=== PATIENT | female | born 1955 | race Caucasian/White ===

== ENCOUNTER 2020-09-29 11:13 | Inpatient (IN) | payer MEDICARE, OTHER ==
[~2020-09-29] VITALS: Ht 160 cm; Wt 59.0 kg
[~2020-09-29 11:13] MED LIST: AMLODIPINE BESYL5 MG PO; ASPIR-LOW81 MG PO; ATORVASTATIN CA40 MG PO; CELEBREX 200MG200 MG PO; COZAAR50 MG PO; DESYREL 50 MG T50 MG PO; DIABETA 5 MG TAB5 MG PO; GLUCOPHAGE XR500 MG PO; HUMULIN N100 UNIT/1 SC; HYDROCODON-ACE1 EAC4 PO; IMDUR ER TAB 3030 MG PO; JINTELI 1 MG-51 EACH PO; KLONOPIN TAB 00.5 MG PO; LANTUS100 UNIT/1 SQ; LIPITOR TAB 1010 MG PO; PLAQUENIL 200200 MG PO; PLAVIX 75 MG TA75 MG PO; REQUIP0.5 MG PO; TOPROL XL25 MG PO; TRULICITY0.75 MG/0. SQ; VITAMIN D250000 UNIT PO
[2020-09-29 11:54] LABS: HEMOGLOBIN 11.6 gm/dl (12.3-15.3); RED BLOOD COUNT 4.57 M/UL (4.00-5.10); WHITE BLOOD COUNT 13.2 K/UL (4.5-11.0)
[2020-09-29] MEDS ORDERED: GABAPENTIN300 MG PO (21:53)
[2020-09-29] MEDS ORDERED: TRAMADOL HCL50 MG PO (21:55)
[2020-09-29] MEDS ORDERED: CYCLOBENZAPRINE5 MG PO (21:56)
[2020-09-29] MEDS ORDERED: REQUIP0.25 MG PO (21:57)
[2020-09-29] MEDS ORDERED: WELLBUTRIN SR150 M1 PO (21:58)
[2020-09-29] MEDS ORDERED: XARELTO20 MG PO (22:00)
[2020-09-30 04:45] LABS: HEMOGLOBIN 12.2 gm/dl (12.3-15.3); RED BLOOD COUNT 4.84 M/UL (4.00-5.10); WHITE BLOOD COUNT 11.4 K/UL (4.5-11.0)
--- NOTE | 2020-10-01 15:54 | NUR ---
REPORTED BS TO DR. CONCEPCION RECEIVED ORDER
[2020-10-01] MEDS ORDERED: IPRAT-ALBUT 0.5-3 ML NEB (17:48)
[2020-10-01] MEDS ORDERED: SYMBICORT 160-1 INHA INH (17:48)
[2020-10-01] MEDS ORDERED: PROAIR HFA8.5 GM INH (17:48)
[2020-10-02] MEDS ORDERED: HYDROCODON-ACE1 EAC4 PO (14:05)
--- NOTE | 2020-10-02 15:12 | NUR ---
report given to JERMAN admitting nurse of [facility]. [facility] delivered bsc and wheel chair
--- NOTE | 2020-10-02 16:56 | NUR ---
PATIENT ON ROOM AIR PULSE OX [id number]. DENIES SOB. DR. CONCEPCION AWARE.
== END 2020-10-02 17:37 | disposition home or self-care (01) | DRG 535 ==
LOC: ER1 11:13 → CDU 17:09 → MED SURG 4 17:09
PROVIDERS: Internal Medicine; Physician Assistant; Physician Assistant Medical; ADMIT Internal Medicine
DX: S72.115A Nondisplaced fracture of greater trochanter of left femur, initial encounter for closed fracture (principal); J96.01 Acute respiratory failure with hypoxia; S82.002A Unspecified fracture of left patella, initial encounter for closed fracture; J44.1 Chronic obstructive pulmonary disease with (acute) exacerbation; Z20.822 Contact with and (suspected) exposure to COVID-19; F17.210 Nicotine dependence, cigarettes, uncomplicated; I25.10 Atherosclerotic heart disease of native coronary artery without angina pectoris; E11.9 Type 2 diabetes mellitus without complications; E78.5 Hyperlipidemia, unspecified; W01.0XXA Fall on same level from slipping, tripping and stumbling without subsequent striking against object, initial encounter; Y93.9 Activity, unspecified; Y92.009 Unspecified place in unspecified non-institutional (private) residence as the place of occurrence of the external cause; Z86.73 Personal history of transient ischemic attack (TIA), and cerebral infarction without residual deficits; Z98.61 Coronary angioplasty status; Z79.01 Long term (current) use of anticoagulants; Z79.02 Long term (current) use of antithrombotics/antiplatelets; Z79.4 Long term (current) use of insulin; Z79.899 Other long term (current) drug therapy; Z82.49 Family history of ischemic heart disease and other diseases of the circulatory system; Z83.3 Family history of diabetes mellitus; Z80.9 Family history of malignant neoplasm, unspecified; I25.2 Old myocardial infarction; Z86.718 Personal history of other venous thrombosis and embolism
CPT/HCPCS: 36415; 36600; 71045; 72192; 73502; 73564; 80048; 80053; 82550; 82553; 82803; 82962; 83735; 83874; 84484; 85025; 85027; 93005; 94640; 94664; 94760; 96374; 96375; 97110-GP-CQ; 97116-GP-CQ; 97162; 99285; J0696; J2270; J2405; J2920; J2930; J7030; U0002

== ENCOUNTER 2020-10-08 16:21 | Inpatient (IN) | payer MEDICARE, OTHER ==
[~2020-10-08] VITALS: Ht 160 cm; Wt 59.0 kg
[~2020-10-08 16:21] MED LIST changes: +CYCLOBENZAPRINE5 MG PO; +GABAPENTIN300 MG PO; +IPRAT-ALBUT 0.5-3 ML NEB; +PROAIR HFA8.5 GM INH; +REQUIP0.25 MG PO; +SYMBICORT 160-1 INHA INH; +TRAMADOL HCL50 MG PO; +WELLBUTRIN SR150 M1 PO; +XARELTO20 MG PO
[2020-10-08 17:15] LABS: HEMOGLOBIN 10.9 gm/dl (12.3-15.3); RED BLOOD COUNT 4.24 M/UL (4.00-5.10); WHITE BLOOD COUNT 15.3 K/UL (4.5-11.0)
[2020-10-08] MEDS ORDERED: ISOSORBIDE MONO30 MG PO (21:17)
[2020-10-09 05:54] LABS: HEMOGLOBIN 9.1 gm/dl (12.3-15.3); RED BLOOD COUNT 3.66 M/UL (4.00-5.10); WHITE BLOOD COUNT 10.9 K/UL (4.5-11.0)
[2020-10-09 06:21] LABS: BUN/CREATININE RATIO 15 (0-10)
[2020-10-10 04:30] LABS: HEMOGLOBIN 9.2 gm/dl (12.3-15.3); RED BLOOD COUNT 3.7 M/UL (4.00-5.10); WHITE BLOOD COUNT 13.4 K/UL (4.5-11.0)
[2020-10-10 04:47] LABS: BUN/CREATININE RATIO 13 (0-10)
[2020-10-11 12:37] LABS: HEMOGLOBIN 9.2 gm/dl (12.3-15.3); RED BLOOD COUNT 3.68 M/UL (4.00-5.10); WHITE BLOOD COUNT 15.8 K/UL (4.5-11.0)
[2020-10-12 04:53] LABS: HEMOGLOBIN 9.8 gm/dl (12.3-15.3); RED BLOOD COUNT 3.86 M/UL (4.00-5.10); WHITE BLOOD COUNT 14.4 K/UL (4.5-11.0)
[2020-10-12 05:22] LABS: BUN/CREATININE RATIO 19 (0-10)
[2020-10-13 03:44] LABS: HEMOGLOBIN 8.3 gm/dl (12.3-15.3); WHITE BLOOD COUNT 13.3 K/UL (4.5-11.0)
[2020-10-13 03:47] LABS: RED BLOOD COUNT 3.39 M/UL (4.00-5.10)
[2020-10-14 11:04] LABS: HEMOGLOBIN 9.4 gm/dl (12.3-15.3)
[2020-10-14 11:07] LABS: RED BLOOD COUNT 3.75 M/UL (4.00-5.10); WHITE BLOOD COUNT 15.9 K/UL (4.5-11.0)
--- NOTE | 2020-10-14 13:30 | NUR ---
UPON PLACING PATIENT BACK IN BED FROM CHAIR HER AQUACEL DRESSING TO HER LEFT HIP SURGICAL SITE WAS NOTED TO BE SATURATED WITH BLOOD. DRESSING WAS REMOVED AND AREA CLEANED WITH A NEW DRESSING APPLIED. [employer]IST[employer] ASSISTANT ON THE FLOOR AT TIME OF INCIDENT WAS MADE AWARE OR SITUATION AND WAS GAVE ORDERS TO CALL MD IF IT HAPPENED AGAIN.
[2020-10-15 04:03] LABS: HEMOGLOBIN 8.3 gm/dl (12.3-15.3); RED BLOOD COUNT 3.37 M/UL (4.00-5.10)
[2020-10-16] MEDS ORDERED: KLONOPIN TAB 00.5 MG PO (11:16)
[2020-10-16] MEDS ORDERED: GABAPENTIN300 MG PO (11:16)
--- NOTE | 2020-10-17 11:58 | NUR ---
PATIENT REQUESTING LIM TO BE D/C AT THIS TIME. PATIENT TOLERATED WELL.
[2020-10-18 05:03] LABS: HEMOGLOBIN 8.3 gm/dl (12.3-15.3); RED BLOOD COUNT 3.49 M/UL (4.00-5.10); WHITE BLOOD COUNT 11.8 K/UL (4.5-11.0)
== END 2020-10-18 20:34 | disposition home health service (06) | DRG 481 ==
LOC: ER1 16:21 → M/S 17:54 → CDU 17:54 → M/S 20:13
PROVIDERS: Emergency Medicine; Internal Medicine; Orthopaedic Surgery; ADMIT Internal Medicine
PROC: 0QS736Z Reposition Left Upper Femur with Intramedullary Internal Fixation Device, Percutaneous Approach (ICD-10-PCS; principal; 2020-10-11 13:00)
DX: S72.142A Displaced intertrochanteric fracture of left femur, initial encounter for closed fracture (principal); S82.002A Unspecified fracture of left patella, initial encounter for closed fracture; D62 Acute posthemorrhagic anemia; M96.830 Postprocedural hemorrhage of a musculoskeletal structure following a musculoskeletal system procedure; W18.30XA Fall on same level, unspecified, initial encounter; J44.9 Chronic obstructive pulmonary disease, unspecified; I25.10 Atherosclerotic heart disease of native coronary artery without angina pectoris; E11.9 Type 2 diabetes mellitus without complications; I10 Essential (primary) hypertension; F17.210 Nicotine dependence, cigarettes, uncomplicated; E78.5 Hyperlipidemia, unspecified; Z79.82 Long term (current) use of aspirin; Z86.73 Personal history of transient ischemic attack (TIA), and cerebral infarction without residual deficits; Z79.02 Long term (current) use of antithrombotics/antiplatelets; Z79.4 Long term (current) use of insulin; Z79.899 Other long term (current) drug therapy; Z98.890 Other specified postprocedural states; Z95.1 Presence of aortocoronary bypass graft; Z86.718 Personal history of other venous thrombosis and embolism; Z20.822 Contact with and (suspected) exposure to COVID-19; Y83.8 Other surgical procedures as the cause of abnormal reaction of the patient, or of later complication, without mention of misadventure at the time of the procedure
CPT/HCPCS: 36415; 71045; 72192; 73502; 76000; 80048; 80053; 82962; 83036; 85025; 85027; 94640; 94760; 97110-GP-CQ; 97116; 97116-GP-CQ; 97162; 97166; 97530; 97535; 99285; C1713; J0690; J1100; J2001; J2270; J2405; J2704; J2710; J3010; J7120; U0002

== ENCOUNTER 2021-01-07 17:36 | Emergency (ER) | payer MEDICARE, OTHER ==
[~2021-01-07 17:36] MED LIST changes: +ISOSORBIDE MONO30 MG PO
== END 2021-01-07 20:40 | disposition home or self-care (01) ==
LOC: ER1 17:36
DX: I73.9 Peripheral vascular disease, unspecified (principal)
CPT/HCPCS: 99283

== ENCOUNTER 2021-01-08 12:39 | Emergency (ER) | payer MEDICARE, OTHER ==
[2021-01-08 15:16] LABS: HEMOGLOBIN 11.3 gm/dl (12.3-15.3); RED BLOOD COUNT 4.59 M/UL (4.00-5.10); WHITE BLOOD COUNT 9.8 K/UL (4.5-11.0)
[2021-01-08 15:46] LABS: BUN/CREATININE RATIO 18 (0-10)
== END 2021-01-09 10:40 | disposition home or self-care (01) ==
LOC: ER1 12:39
PROVIDERS: Emergency Medicine
DX: I99.8 Other disorder of circulatory system (principal); Z20.822 Contact with and (suspected) exposure to COVID-19
CPT/HCPCS: 80053; 82550; 82553; 82962; 83874; 84484; 85025; 85610; 85730; 93005; 93926; 93971; 96374; 96375; 99284; J0360; J1644; U0002

== ENCOUNTER 2021-06-29 13:37 | Emergency (ER) | payer MEDICARE, OTHER ==
[2021-06-29 15:26] LABS: RED BLOOD COUNT 2.61 M/UL (4.00-5.10); WHITE BLOOD COUNT 25.9 K/UL (4.5-11.0)
[2021-06-29 15:29] LABS: HEMOGLOBIN 5.9 gm/dl (12.3-15.3)
== END 2021-06-29 19:40 | disposition short-term general hospital (02) ==
LOC: ER1 13:37
PROVIDERS: Student in an Organized Health Care Education/Training Program
DX: T82.7XXA Infection and inflammatory reaction due to other cardiac and vascular devices, implants and grafts, initial encounter (principal); S70.11XA Contusion of right thigh, initial encounter; S80.11XA Contusion of right lower leg, initial encounter; E11.9 Type 2 diabetes mellitus without complications; I10 Essential (primary) hypertension; Z20.822 Contact with and (suspected) exposure to COVID-19; I25.2 Old myocardial infarction; W19.XXXA Unspecified fall, initial encounter; Y93.9 Activity, unspecified; Y92.002 Bathroom of unspecified non-institutional (private) residence as the place of occurrence of the external cause
CPT/HCPCS: 36430; 73502; 73552; 80053; 83605; 85025; 85610; 86850; 86900; 86901; 86920; 87040; 96374; 96375; 99285; J2270; J2405; J3370; P9016; Q9967; U0002

== ENCOUNTER → 2021-12-01 | Outpatient (CLI) | payer MEDICARE, OTHER ==
[2021-12-01 17:26] LABS: HEMOGLOBIN 10.3 gm/dl (12.3-15.3); RED BLOOD COUNT 3.3 M/UL (4.00-5.10); WHITE BLOOD COUNT 10.7 K/UL (4.5-11.0)
[2021-12-01 18:01] LABS: BUN/CREATININE RATIO 27 (0-10)
== END ==
LOC: LAB 15:31
PROVIDERS: Internal Medicine Infectious Disease
DX: T87.81 Dehiscence of amputation stump (principal); T87.43 Infection of amputation stump, right lower extremity; L03.115 Cellulitis of right lower limb; B95.62 Methicillin resistant Staphylococcus aureus infection as the cause of diseases classified elsewhere; D69.3 Immune thrombocytopenic purpura
CPT/HCPCS: 36415; 80053; 82550; 85025; 85652; 86140

== ENCOUNTER → 2021-12-01 | Outpatient (CLI) | payer MEDICARE, OTHER | LOC: WCC 08:18 | DX: E11.622 Type 2 diabetes mellitus with other skin ulcer (principal); L89.153 Pressure ulcer of sacral region, stage 3; L89.620 Pressure ulcer of left heel, unstageable; T87.81 Dehiscence of amputation stump; Z89.612 Acquired absence of left leg above knee; E11.51 Type 2 diabetes mellitus with diabetic peripheral angiopathy without gangrene; E46 Unspecified protein-calorie malnutrition; I25.10 Atherosclerotic heart disease of native coronary artery without angina pectoris; I10 Essential (primary) hypertension; J44.9 Chronic obstructive pulmonary disease, unspecified; Z72.0 Tobacco use; Z79.4 Long term (current) use of insulin | CPT/HCPCS: 97597 ==

== ENCOUNTER → 2021-12-15 | Outpatient (CLI) | payer MEDICARE, OTHER | LOC: WCC 08:25 | DX: E11.621 Type 2 diabetes mellitus with foot ulcer (principal); E11.622 Type 2 diabetes mellitus with other skin ulcer; L89.620 Pressure ulcer of left heel, unstageable; L89.153 Pressure ulcer of sacral region, stage 3; E11.51 Type 2 diabetes mellitus with diabetic peripheral angiopathy without gangrene; I25.10 Atherosclerotic heart disease of native coronary artery without angina pectoris; I10 Essential (primary) hypertension; J44.9 Chronic obstructive pulmonary disease, unspecified; E46 Unspecified protein-calorie malnutrition; Z72.0 Tobacco use; Z89.612 Acquired absence of left leg above knee; Z79.4 Long term (current) use of insulin; Z79.899 Other long term (current) drug therapy | CPT/HCPCS: 87070; 87077; 87186; 87205 ==

== ENCOUNTER → 2021-12-22 | Outpatient (CLI) | payer MEDICARE, OTHER | LOC: WCC 09:17 | DX: E11.621 Type 2 diabetes mellitus with foot ulcer (principal); L89.620 Pressure ulcer of left heel, unstageable; L89.153 Pressure ulcer of sacral region, stage 3; E11.51 Type 2 diabetes mellitus with diabetic peripheral angiopathy without gangrene; E46 Unspecified protein-calorie malnutrition; I25.10 Atherosclerotic heart disease of native coronary artery without angina pectoris; I10 Essential (primary) hypertension; J44.9 Chronic obstructive pulmonary disease, unspecified; Z72.0 Tobacco use; Z89.612 Acquired absence of left leg above knee; Z79.4 Long term (current) use of insulin; Z79.899 Other long term (current) drug therapy ==

== ENCOUNTER → 2021-12-29 | Outpatient (CLI) | payer MEDICARE, OTHER | LOC: WCC 08:13 | DX: E11.622 Type 2 diabetes mellitus with other skin ulcer (principal); L89.153 Pressure ulcer of sacral region, stage 3; L89.620 Pressure ulcer of left heel, unstageable; E11.51 Type 2 diabetes mellitus with diabetic peripheral angiopathy without gangrene; E46 Unspecified protein-calorie malnutrition; Z79.4 Long term (current) use of insulin; I25.10 Atherosclerotic heart disease of native coronary artery without angina pectoris; I10 Essential (primary) hypertension; J44.9 Chronic obstructive pulmonary disease, unspecified; Z89.612 Acquired absence of left leg above knee; Z72.0 Tobacco use; Z79.899 Other long term (current) drug therapy ==

== ENCOUNTER → 2022-02-16 | Outpatient (CLI) | payer MEDICARE, OTHER | LOC: WCC 07:49 | DX: L89.622 Pressure ulcer of left heel, stage 2 (principal); L89.153 Pressure ulcer of sacral region, stage 3; E11.622 Type 2 diabetes mellitus with other skin ulcer; I73.9 Peripheral vascular disease, unspecified; E46 Unspecified protein-calorie malnutrition; I25.10 Atherosclerotic heart disease of native coronary artery without angina pectoris; I10 Essential (primary) hypertension; J44.9 Chronic obstructive pulmonary disease, unspecified; E11.36 Type 2 diabetes mellitus with diabetic cataract; H26.9 Unspecified cataract; I25.2 Old myocardial infarction; Z72.0 Tobacco use; Z89.612 Acquired absence of left leg above knee; Z79.4 Long term (current) use of insulin ==

== ENCOUNTER → 2022-03-02 | Outpatient (CLI) | payer MEDICARE, OTHER | END | disposition home or self-care (01) | LOC: WCC 07:57 | DX: L89.620 Pressure ulcer of left heel, unstageable (principal); L89.152 Pressure ulcer of sacral region, stage 2; L89.153 Pressure ulcer of sacral region, stage 3; E11.622 Type 2 diabetes mellitus with other skin ulcer; E11.51 Type 2 diabetes mellitus with diabetic peripheral angiopathy without gangrene; I25.10 Atherosclerotic heart disease of native coronary artery without angina pectoris; I10 Essential (primary) hypertension; J44.9 Chronic obstructive pulmonary disease, unspecified; E46 Unspecified protein-calorie malnutrition; F17.210 Nicotine dependence, cigarettes, uncomplicated; Z79.4 Long term (current) use of insulin; Z89.612 Acquired absence of left leg above knee; Z91.14 Patient's other noncompliance with medication regimen | CPT/HCPCS: 97597 ==

== ENCOUNTER 2022-03-07 13:27 | Inpatient (IN) | payer MEDICARE, OTHER ==
[~2022-03-07] VITALS: Ht 160 cm; Wt 54.4 kg
[~2022-03-07 13:27] MED LIST changes: +LANTUS SOL100 UNIT/1 SQ; -LANTUS100 UNIT/1 SQ; -REQUIP0.25 MG PO; +ROPINIROLE HCL0.5 MG PO
[2022-03-07 14:11] LABS: RED BLOOD COUNT 2.88 M/UL (4.00-5.10); WHITE BLOOD COUNT 12.6 K/UL (4.5-11.0)
[2022-03-07 14:13] LABS: HEMOGLOBIN 6.3 gm/dl (12.3-15.3)
[2022-03-07 14:43] LABS: BUN/CREATININE RATIO 16 (0-10)
[2022-03-07] MEDS ORDERED: GABAPENTIN400 MG PO (18:51)
[2022-03-07] MEDS ORDERED: ISOSORBIDE MONO30 MG PO (18:52)
[2022-03-07] MEDS ORDERED: KLONOPIN0.5 MG PO (18:53)
[2022-03-07] MEDS ORDERED: TOPIRAMATE50 MG PO (18:54)
[2022-03-07] MEDS ORDERED: AMLODIPINE BESYL5 MG PO (18:54)
[2022-03-08 06:09] LABS: WHITE BLOOD COUNT 11.3 K/UL (4.5-11.0)
[2022-03-08 06:31] LABS: HEMOGLOBIN 10.3 gm/dl (12.3-15.3); RED BLOOD COUNT 4.15 M/UL (4.00-5.10)
[2022-03-08 06:39] LABS: BUN/CREATININE RATIO 15 (0-10)
[2022-03-08] MEDS ORDERED: METOPROLOL SUCC25 MG PO (09:55)
[2022-03-08] MEDS ORDERED: CLOPIDOGREL75 MG PO (09:56)
[2022-03-09 02:53] LABS: HEMOGLOBIN 10.4 gm/dl (12.3-15.3); RED BLOOD COUNT 4.35 M/UL (4.00-5.10); WHITE BLOOD COUNT 12.9 K/UL (4.5-11.0)
[2022-03-09 03:20] LABS: BUN/CREATININE RATIO 17 (0-10)
[2022-03-09 14:18] LABS: ADENOVIRUS F 40/41 Not Detected (Negative); ASTROVIRUS Not Detected (Negative); CAMPYLOBACTER Not Detected (Negative); CRYPTOSPORIDIUM Not Detected (Negative); E.COLI 0157 Not Detected (Negative); ENTAMOEBA HISTOLYTICA Not Detected (Negative); ENTEROAGGREGATIVE E.COLI (EAEC Not Detected (Negative); ENTEROPATHOGENIC E.COLI (EPEC) Not Detected (Negative); ENTEROTOXIGENIC E.COLI (ETEC) Not Detected (Negative); GIARDIA LAMBLIA Not Detected (Negative); NOROVIRUS GI/GII Not Detected (Negative); PLESIOMONAS SHIGELLOIDES Not Detected (Negative); ROTOVIRUS A Not Detected (Negative); SALMONELLA Not Detected (Negative); SAPOVIRUS Not Detected (Negative); SHIG/ENTEROINVAS.ECOLI (EIEC) Not Detected (Negative); SHIGA-LIK TOX.PRO.E.COLI (STEC Not Detected (Negative); VIBRIO Not Detected (Negative); VIBRIO CHOLERAE Not Detected (Negative); YERSINIA ENTEROCOLITICA Not Detected (Negative)
[2022-03-10 07:04] LABS: HEMOGLOBIN 9.5 gm/dl (12.3-15.3); RED BLOOD COUNT 3.92 M/UL (4.00-5.10)
[2022-03-10 07:14] LABS: WHITE BLOOD COUNT 8.5 K/UL (4.5-11.0)
[2022-03-10] MEDS ORDERED: VANCOMYCIN HCL125 MG PO (08:17)
--- NOTE | 2022-03-10 13:11 | NUR ---
CALLED [facility] TO INFORM THEM THAT PATIENT IS RETURNING HOME. SPOKE WITH JERMAN. INFORMED TJ OF PATIENT CURRENT DIAGNOSES. (CDIFF, COVID AND ANEMIA). JERMAN STATED THAT SHE WILL BE OUT TO PT HOME IN THE MORNING TO SEE PATIENT. PT IS HERE TO TAKE PATIENT HOME.
== END 2022-03-10 14:20 | disposition home or self-care (01) | DRG 371 ==
LOC: ER1 13:27 → M/S 16:48 → CDU 16:48 → M/S 18:59
PROVIDERS: Emergency Medicine; ADMIT Internal Medicine
PROC: 30233N1 Transfusion of Nonautologous Red Blood Cells into Peripheral Vein, Percutaneous Approach (ICD-10-PCS; principal; 2022-03-07)
DX: A04.72 Enterocolitis due to Clostridium difficile, not specified as recurrent (principal); U07.1 COVID-19; N17.9 Acute kidney failure, unspecified; J44.1 Chronic obstructive pulmonary disease with (acute) exacerbation; I10 Essential (primary) hypertension; F17.210 Nicotine dependence, cigarettes, uncomplicated; E11.9 Type 2 diabetes mellitus without complications; L89.322 Pressure ulcer of left buttock, stage 2; I25.10 Atherosclerotic heart disease of native coronary artery without angina pectoris; D63.8 Anemia in other chronic diseases classified elsewhere; D64.9 Anemia, unspecified; Z89.611 Acquired absence of right leg above knee; Z95.5 Presence of coronary angioplasty implant and graft; Z79.4 Long term (current) use of insulin; Z83.3 Family history of diabetes mellitus; Z86.73 Personal history of transient ischemic attack (TIA), and cerebral infarction without residual deficits
CPT/HCPCS: 0240U; 36415; 36430; 71045; 80048; 80053; 82272; 82550; 82553; 82607; 82746; 82962; 83036; 83540; 83550; 83605; 83690; 83735; 83880; 84100; 84439; 84443; 84484; 85025; 85045; 85652; 86140; 86850; 86900; 86901; 86920; 87324; 87449; 87507; 93005; 94640; 94664; 94760; 97161; 97166; 97530; 99285; J1756; J7030; P9016

== ENCOUNTER → 2022-03-23 | Outpatient (CLI) | payer MEDICARE, OTHER ==
[~2022-03-23] MED LIST changes: +CLOPIDOGREL75 MG PO; +GABAPENTIN400 MG PO; +KLONOPIN0.5 MG PO; +METOPROLOL SUCC25 MG PO; +TOPIRAMATE50 MG PO; +VANCOMYCIN HCL125 MG PO
== END | disposition home or self-care (01) ==
LOC: WCC 07:31
DX: L89.153 Pressure ulcer of sacral region, stage 3 (principal); L89.620 Pressure ulcer of left heel, unstageable; E11.622 Type 2 diabetes mellitus with other skin ulcer; E11.51 Type 2 diabetes mellitus with diabetic peripheral angiopathy without gangrene; E46 Unspecified protein-calorie malnutrition; I25.10 Atherosclerotic heart disease of native coronary artery without angina pectoris; I10 Essential (primary) hypertension; J44.9 Chronic obstructive pulmonary disease, unspecified; Z89.612 Acquired absence of left leg above knee; F17.210 Nicotine dependence, cigarettes, uncomplicated; Z79.4 Long term (current) use of insulin; Z91.14 Patient's other noncompliance with medication regimen

== ENCOUNTER → 2022-04-08 | Outpatient (CLI) | payer MEDICARE, OTHER | LOC: WCC 08:21 | DX: E11.622 Type 2 diabetes mellitus with other skin ulcer (principal); L89.153 Pressure ulcer of sacral region, stage 3; L89.622 Pressure ulcer of left heel, stage 2; Z89.612 Acquired absence of left leg above knee; E11.51 Type 2 diabetes mellitus with diabetic peripheral angiopathy without gangrene; E46 Unspecified protein-calorie malnutrition; I25.10 Atherosclerotic heart disease of native coronary artery without angina pectoris; I10 Essential (primary) hypertension; J44.9 Chronic obstructive pulmonary disease, unspecified; Z72.0 Tobacco use; Z79.4 Long term (current) use of insulin; Z79.899 Other long term (current) drug therapy | CPT/HCPCS: G0463 ==

== ENCOUNTER → 2022-04-16 | Outpatient (CLI) | payer MEDICARE, OTHER ==
[2022-04-16 16:04] LABS: HEMOGLOBIN 10.1 gm/dl (12.3-15.3); RED BLOOD COUNT 3.66 M/UL (4.00-5.10); WHITE BLOOD COUNT 11.9 K/UL (4.5-11.0)
== END ==
LOC: LAB 15:44
PROVIDERS: Internal Medicine Gastroenterology
DX: R19.7 Diarrhea, unspecified (principal)
CPT/HCPCS: 36415; 85027